=== PATIENT | male | born 1995 | race Caucasian/White ===

== ENCOUNTER 2023-08-06 23:36 | Emergency (ER) | payer OTHER, SELFPAY ==
[2023-08-06 23:42] VITALS: BP 122/86; PULSE 82; RESP 18; TEMP 36.9; O2SAT 100; BMI 19.7
--- NOTE | 2023-08-07 00:39 | CT_ITS ---
Patient: JOSE GIBBS Facility:?[facility] Patient ID:?[id number] Site Patient ID:?[id number]. Site :?[id number] Study:?CT-Head W/O-08/07/2023 1:22:16 AM Ordering Physician:ANJALI Final Report: INDICATION: Lightheaded. TECHNIQUE: CT head without contrast. COMPARISON: None. FINDINGS: Brain parenchyma, CSF spaces, and extra-axial spaces: The stark-white differentiation is normal. No sign of mass, hemorrhage, or midline shift. No hydrocephalus. No extra-axial fluid collection. Skull base and calvarium: Mild bilateral frontal sinus and ethmoid air cells mucosal thickening. The visualized orbits are grossly unremarkable. No skull fractures. IMPRESSION: 1. No evidence of an acute intracranial abnormality. 2. Mild bilateral frontoethmoid sinus mucosal disease. Please note that all CT scans at this facility use dose modulation, iterative reconstruction, and/or weight-based dosing when appropriate to reduce radiation dose to as low as reasonably achievable. Dictated by Andrei Lombardi MD @ 08/07/2023 1:28:49 AM Signed by:?Andrei Lombardi MD @08/07/2023 1:28:49 AM (Electronic Signature)
[2023-08-07 01:09] LABS: Basophils Absolute Auto 0.04 K/uL (0.00-0.30); Basophils Percent Auto 0.5 % (0.0-3.0); Eosinophils Absolute Auto 0.04 K/uL (0.00-0.50); Eosinophils Percent Auto 0.5 % (0.0-7.0); Hematocrit 43.8 % (37.0-53.0); Hemoglobin* 14.2 gm/dL (13.5-17.5); Immature Granulocytes Abs Auto 0.09 K/uL (0.00-0.30); Lymphocytes Percent Auto 10.8 % (20-44); Mean Corpuscular HGB Conc 32 gm/dL (32-36); Mean Corpuscular Hemoglobin 29 pg (26-34); Mean Corpuscular Volume 89 fL (80-100); Monocytes Percent Auto 5.2 % (0.0-11.0); Platelet Count* 269 K/uL (140-440); RDW Coefficient of Variation % 12.5 % (11.5-15.5)
[2023-08-07 01:11] LABS: Slide Review Reflex No
[2023-08-07 01:22] LABS: Chloride* 108 mmol/L (96-114); Potassium* 4.1 mmol/L (3.6-5.1); Sodium* 143 mmol/L (135-149)
[2023-08-07 01:24] LABS: Alkaline Phosphatase* 68 U/L (40-150); Aspartate Amino Transferase* 24 U/L (12-35); Bilirubin Direct* 0.1 mg/dL (0.0-0.5); Bilirubin Total* 0.6 mg/dL (0.1-1.5); Total Protein* 8.1 g/dL (6.0-8.3)
[2023-08-07 01:25] LABS: Anion Gap 11 mEq/L (7-15); Carbon Dioxide* 24 mmol/L (20-32); Est. Creatinine Clearance* 105.05; Estimated Glomerular Filt Rate 107 ml/min
[2023-08-07 01:25] LABS: Alanine Aminotransferase* 18 U/L (4-50)
[2023-08-07 01:26] LABS: Blood Urea Nitrogen* 20 mg/dL (5-24); Calcium* 9.9 mg/dL (8.4-10.6); Glucose* 129 mg/dL (60-115)
--- NOTE | 2023-08-07 02:27 | ED.GENADULT ---
HPI - General Adult General Date Seen: 08/07/23 Chief complaint: Unspecified Complaint, Adult Stated complaint: balance issues, panic attack Time Seen by Provider: 08/07/23 00:11 Source: patient and family Mode of arrival: ambulatory Limitations: no limitations History of Present Illness HPI narrative: Patient is a 27-year-old male with a long history of anxiety. He is currently taking mirtazapine 7.5 mg at bedtime. This was chosen because it seemed to help his morning nausea to some degree. Over the past six days he has had two panic attacks. He is not know what these are triggered by. The 1st one woke him from sleep. The one this evening occurred while he was sitting at home. He is under stress at work and has chronic anxiety. He denies depression. He became concerned today because he had some lightheadedness that occurred when he stood up quickly and with prolonged walking or standing. No vertigo. No chest pains or shortness of breath. He called his father after the panic attack when on for about 2 hours and he drove from [place] up to [place] and brought him in. Related Data Home Medications Medication Instructions Recorded Confirmed mirtazapine 7.5 mg tablet 7.5 mg PO HS 08/06/23 08/06/23 Previous Rx's Medication Instructions Recorded lorazepam 1 mg tablet 0.5 - 1 mg (0.5 - 1 x 1 mg) PO BID 08/07/23 PRN anxiety #10 tabs paroxetine HCl 20 mg tablet (Paxil) 20 mg PO DAILY #30 tabs 08/07/23 Allergies Allergy/AdvReac Type Severity Reaction Status Date / Time No Known Drug Allergies Allergy Verified 08/06/23 23:47 Review of Systems Narrative: Review of systems is positive for chronic abdominal pain, nausea, diarrhea. He has been fully worked up for this at [facility]. His anxiety is treated with mirtazapine and that has helped his morning nausea to some degree. Review of systems is otherwise noted to be negative. [facility] Medical History (Updated 08/07/23 @ 02:30 by Sam Oakes MD) Anxiety ?F41.9 - Anxiety disorder, unspecified (ICD-10) Surgical History (Updated 08/06/23 @ 23:53 by Manolo So RN) History of surgery on arm ?Z98.890 - Other specified postprocedural states (ICD-10) Social History Smoking Status: Never smoker Second hand tobacco smoke exposure: No How often do you have a drink containing alcohol: never AUDIT-C Alcohol total score: 0 Non-prescribed substance use: denies use Exam Narrative: Exam Narrative: Vitals noted. HEENT: Conjunctiva clear. Tympanic membranes are pearly white bilaterally. Posterior pharynx is clear without erythema or exudate. Neck is supple without adenopathy, thyromegaly, carotid bruit. Lungs: Clear to auscultation in all posey. No wheezes, rales, rhonchi. Heart: Regular rate and rhythm without murmur. Abdomen: Soft and nontender. No guarding, rigidity, rebound. Bowel sounds are normal. No palpable masses. Extremities: No cyanosis or edema. Good distal pulses. Skin: No abnormalities noted of the exposed skin. Neurologic: Awake, alert, fully oriented. Neurologic exam is nonfocal. Const: Vital Signs, click to edit/add: Vital Signs - 24 hr 08/06/23 23:42 08/07/23 03:01 08/07/23 03:02 Temperature 98.5 F 98.5 F 98.5 F Pulse Rate [Right Pulse Oximeter] 82 79 79 Respiratory Rate 18 18 18 Blood Pressure [Ri ght Upper Arm] 122/86 132/74 132/74 Pulse Oximetry 100 100 Oxygen Delivery Me thod Room Air Room Air Course Course ED Course: Patient was seen and examined. His exam is unremarkable. CT of his head without contrast is normal. Labs including CBC, BMP, LFTs, TSH are all normal. Reevaluation(s) Reevaluation #1: Had a good discussion with the patient and his father regarding his anxiety and diarrhea prevalent irritable bowel syndrome. We discussed that adding Paxil may help both issues significantly. I did agree to provide him with some lorazepam to use for panic attacks. They were grateful to hear that there is something that might be helpful for the stomach issues he gets with his anxiety. I see no need for further workup for his lightheadedness and less the problem worsens or persists. They are comfortable with this plan. Vital Signs Vital signs: Initial Vital Signs Temperature 98.5 F 08/06/23 23:42 Temperature Source Temporal Artery Scan 08/06/23 23:42 Pulse Rate 82 08/06/23 23:42 Respiratory Rate 18 08/06/23 23:42 Blood Pressure 122/86 08/06/23 23:42 Blood Pressure Mean 98 08/06/23 23:42 Blood Pressure Position Sitting 08/06/23 23:42 Pulse Oximetry 100 08/06/23 23:42 Oxygen Delivery Method Room Air 08/06/23 23:42 Vital Signs Temperature 98.5 F 08/06/23 23:42 Pulse Rate 82 08/06/23 23:42 Respiratory Rate 18 08/06/23 23:42 Blood Pressure 122/86 08/06/23 23:42 Pulse Oximetry 100 08/06/23 23:42 Oxygen Delivery Method Room Air 08/06/23 23:42 Temperature 98.5 F 08/07/23 03:02 Pulse Rate 79 08/07/23 03:02 Respiratory Rate 18 08/07/23 03:02 Blood Pressure 132/74 08/07/23 03:02 Pulse Oximetry 100 08/07/23 03:01 Oxygen Delivery Method Room Air 08/07/23 03:01 Medical Decision Making Lab Data Labs: Lab Results 08/07/23 08/07/23 Range/Units 00:42 01:00 WBC 8.70 (4.50-11.00) K/uL RBC 4.90 (4.30-5.90) m/uL Hgb 14.2 (13.5-17.5) gm/dL Hct 43.8 (37.0-53.0) % MCV 89 (80-100) fL MCH 29 (26-34) pg MCHC 32 (32-36) gm/dL RDW Coeff of [place] 12.5 (11.5-15.5) % Plt Count 269 (140-440) K/uL Neut % (Auto) 82.0 H (42.0-72.0) % Lymph % (Auto) 10.8 L (20-44) % [place] % (Auto) 5.2 (0.0-11.0) % Eos % (Auto) 0.5 (0.0-7.0) % Baso % (Auto) 0.5 (0.0-3.0) % Neut # (Auto) 7.10 H (1.7-7.0) K/uL Lymph # (Auto) 0.90 (0.90-2.90) K/uL [place] # (Auto) 0.50 (0.00-0.90) K/UL Eos # (Auto) 0.04 (0.00-0.50) K/uL Baso # (Auto) 0.04 (0.00-0.30) K/uL Abs Immat Gran (auto) 0.09 (0.00-0.30) K/uL Imm/Tot Granulo (auto) 1.0 % Sodium 143 (135-149) mmol/L Potassium 4.1 (3.6-5.1) mmol/L Chloride 108 (96-114) mmol/L Carbon Dioxide 24 (20-32) mmol/L Anion Gap 11 (7-15) mEq/L BUN 20 (5-24) mg/dL Creatinine 1.0 (0.5-1.5) mg/dL Estimated Creat Clear 105.05 Estimated GFR 107 ml/min Glucose 129 H (60-115) mg/dL Calcium 9.9 (8.4-10.6) mg/dL Total Bilirubin 0.6 (0.1-1.5) mg/dL Direct Bilirubin 0.1 (0.0-0.5) mg/dL AST 24 (12-35) U/L ALT 18 (4-50) U/L Alkaline Phosphatase 68 (40-150) U/L Total Protein 8.1 (6.0-8.3) g/dL Albumin 5.0 (3.3-5.0) g/dL TSH 2.550 (0.270-4.20) uIU/mL Discharge Plan Discharge Clinical Impression: Generalized anxiety disorder with panic attacks, Irritable bowel syndrome with diarrhea Patient Disposition: Home, Self-Care Condition: Improved Additional Instructions: Continue mirtazapine 7.5 mg at bedtime. Start Paxil 10 mg daily for the 1st six days, 20 mg daily thereafter. Follow up with your clinic doctor in four weeks. You can use lorazepam 0.5-1 mg as needed for panic attacks. Your CT and labs are all very reassuring. Prescriptions: New lorazepam 1 mg tablet 0.5 - 1 mg PO BID PRN (Reason: anxiety) Qty: 10 0RF paroxetine HCl [Paxil] 20 mg tablet 20 mg PO DAILY Qty: 30 1RF Rx Instructions: 1/2 QD x 6 days then 1 QD No Action mirtazapine 7.5 mg tablet 7.5 mg PO HS Follow Up/Referrals: Provider,Not a Local [Primary Care Provider] - Stand Alone Forms: [employer] Info Instructions
[2023-08-07 03:01] VITALS: BP 132/74; PULSE 79; RESP 18; TEMP 36.9; O2SAT 100
[2023-08-07 03:02] VITALS: BP 132/74; PULSE 79; RESP 18; TEMP 36.9
== END 2023-08-07 03:02 | disposition home or self-care (01) ==
PROVIDERS: Emergency Provider Family Medicine
DX: F41.1 Generalized anxiety disorder (principal); F41.0 Panic disorder [episodic paroxysmal anxiety]; K58.0 Irritable bowel syndrome with diarrhea
CPT/HCPCS: 36415; 70450; 80048; 80076; 84443; 85025; 99283; 99284